=== PATIENT | female | born 2000 | race Caucasian/White ===

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

== ENCOUNTER 2021-01-04 08:21 | Emergency (ER) | payer BC ==
[2021-01-04 08:42] VITALS: BP 114/68
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
[2021-01-04] MEDS ORDERED: RABIES VACCINE 2.5 UNIT SYRINGE IM ONE (09:23)
[2021-01-04] MEDS ORDERED: RABIES IMMUNE GLOBULIN 300 UNITS/2 ML IM STA (09:23)
== END 2021-01-04 11:03 | disposition home or self-care (01) ==
LOC: ED 08:21
DX: Z20.3 Contact with and (suspected) exposure to rabies (principal); Z29.14 Encounter for prophylactic rabies immune globulin
CPT/HCPCS: 90471; 96372; 99281; 99282

== ENCOUNTER 2023-04-03 13:35 | Outpatient (CLI) | payer BC ==
--- NOTE | 2023-04-03 17:05 | Ultrasound Report ---
PROCEDURE: Pelvic w/Transvaginal INDICATIONS: HEMORRHAGIC CYST TECHNIQUE: Real-time scanning was performed of the pelvic organs, with image documentation. Additional endovagi nal scanning was necessary due to incomplete visualization of the adnexal and endometrial structures by transabdominal scanning. COMPARISON: None. FINDINGS: Uterus: Uterus is anteverted and normal in size at 6.7 x 3.7 x 5.3 cm. The myometrium is homogeneou s. No discrete uterine fibroids. The endometrium measures 10.3 mm in combined thickness. No gross e ndometrial mass or fluid. Ovaries: The right ovary measures 4.1 x 2 x 1.7 cm, with a calculated ovarian volume of 7.3 cc. The left ovary measures 3.2 x 2.3 x 2.9 cm, with a calculated ovarian volume of 11.1 cc. Less than 12 fo llicles can be seen in each ovary. No adnexal masses are seen. Dominant follicle versus simple cyst is seen in left ovary measures 1.8 x 1.7 x 1.8 cm in size. Other: Small amount of fluid in right adnexa is seen which may be physiologic fluid. No pathologic f ree abdominal or pelvic fluid. IMPRESSION: 1. Normal-appearing uterus and endometrium. 2. Dominant follicle versus simple cyst in left ovary as above. No solid-appearing ovarian lesion. 3. Likely physiologic amount of fluid within right adnexa. Reviewed by: Douglas Gibbons MD on 04/03/2023 5:04 PM PST Approved by: Douglas Gibbons MD on 04/03/2023 5:04 PM PST Station ID: [id number]
== END 2023-04-03 13:36 | disposition home or self-care (01) ==
LOC: DI 13:35
PROVIDERS: ATTEND Nurse Practitioner Obstetrics & Gynecology
DX: Z87.42 Personal history of other diseases of the female genital tract (principal)